=== PATIENT | male | born 1965 | race Two or more races ===

== ENCOUNTER 2021-04-08 04:08 | Emergency (ER) | payer SELFPAY ==
[~2021-04-08] VITALS: Ht 182.9 cm; Wt 100.0 kg
[2021-04-08 04:10] VITALS: BP 135/85
== END 2021-04-08 05:00 | disposition home or self-care (01) ==
LOC: ER 04:08
DX: F10.129 Alcohol abuse with intoxication, unspecified (principal); R45.6 Violent behavior; Y90.9 Presence of alcohol in blood, level not specified
CPT/HCPCS: 99283; Z7610